=== PATIENT | male | born 1975 | race Caucasian/White ===

== ENCOUNTER 2025-04-11 10:19 | Inpatient (IN) | payer SELFPAY ==
[~2025-04-11] VITALS: Ht 175.3 cm; Wt 88.5 kg
[2025-04-11 10:22] VITALS: O2SAT 99
[2025-04-11] MEDS: LACTATED RINGERS 1,000 ML IV SCH (10:52)
[2025-04-11] MEDS: ONDANSETRON HCL 4MG/2ML INJ IV ONE (10:52)
[2025-04-11] MEDS: KETOROLAC 15MG/ML VIAL IV ONE (10:53)
[2025-04-11 11:08] LABS: BASOPHILS % 0.7 % (0.0-2.0); EOSINOPHILS % 0.4 % (0.0-5.0); HEMATOCRIT. 46.2 % (42.0-52.0); HEMOGLOBIN. 16.1 g/dL (14.0-18.0); LYMPHOCYTES % 14.3 % (20.0-50.0); MEAN PLATELET VOLUME 11.1 fl (7.4-10.4); MONOCYTES % 7.3 % (2.0-8.0); NEUTROPHILS % 77.3 % (40.0-76.0); PLATELET 152 x1000/uL (130-400); RED BLOOD CELL COUNT 5.05 mill/uL (4.7-6.1); RED CELL DISTRIBUTION WIDTH 13.9 % (11.6-14.6)
[2025-04-11 11:22] LABS: CREATININE 1.2 mg/dL (0.6-1.3)
[2025-04-11 11:23] LABS: UREA NITROGEN BLOOD 13 mg/dL (9-23)
[2025-04-11 11:24] LABS: ASPARTATE AMINOTRANSFERASE 28 IU/L (<34)
[2025-04-11 11:25] LABS: BILIRUBIN DIRECT 0.4 mg/dL (<=3.0); BILIRUBIN TOTAL 1.2 mg/dL (0.1-1.0); PROTEIN TOTAL 7.0 g/dL (6.0-8.3)
[2025-04-11] MEDS ORDERED: HYDROMORPHONE HCL/PF 2MG/ML INJ IV ONE (11:30)
[2025-04-11] MEDS: HYDROMORPHONE HCL/PF 1MG/ML INJ IV NR (12:04)
[2025-04-11 12:12] LABS: CLARITY URINE CLEAR (CLEAR); COLOR URINE YELLOW (YELLOW); GLUCOSE URINE NEGATIVE (NEGATIVE); KETONES URINE 4+ (NEGATIVE); LEUKOCYTE ESTERASE URINE NEGATIVE (NEGATIVE); NITRITE URINE NEGATIVE (NEGATIVE); OCCULT BLOOD URINE 2+ (NEGATIVE); PH URINE 5.5 (4.5-8.0); PROTEIN URINE NEGATIVE (NEGATIVE); SPECIFIC GRAVITY URINE 1.031 (1.005-1.030); UROBILINOGEN URINE 0.2 E.U./dL (0.2-1.0)
[2025-04-11 12:21] LABS: BACTERIA URINE NONE SEEN; SQUAMOUS EPITHELIAL CELL URINE RARE /lpf (RARE/1+); WBC URINE 0-2 /hpf (0-2); YEAST URINE NONE SEEN
[2025-04-11] MEDS ORDERED: CLONIDINE 0.1MG TABLET PO PRN (12:45)
[2025-04-11] MEDS ORDERED: MAGNESIUM/ALUMINUM HYDROXIDE/SIMETHICONE 30ML UDC PO PRN (12:45)
[2025-04-11] MEDS ORDERED: ACETAMINOPHEN 325MG TABLET PO PRN ×2 (12:45)
[2025-04-11] MEDS ORDERED: ONDANSETRON HCL 4MG/2ML INJ IV PRN (12:45)
[2025-04-11] MEDS ORDERED: DIPHENHYDRAMINE 50MG/ML VIAL IV PRN (12:45)
[2025-04-11] MEDS ORDERED: KETOROLAC 30MG/ML VIAL IV PRN (12:45)
[2025-04-11] MEDS ORDERED: NALOXONE HCL 0.4MG/ML VIAL IV PRN (13:00)
[2025-04-11] MEDS: SODIUM CHLORIDE 0.9% 1,000 ML IV SCH (13:08)
[2025-04-11 13:45] VITALS: BP 109/76; PULSE 53; RESP 20; TEMP 36.3; O2SAT 100
[2025-04-11] MEDS: TAMSULOSIN HCL 0.4MG SR CAPSULE PO SCH (13:50)
[2025-04-11] MEDS: KCL 20MEQ/100ML PREMIX 100 ML IV NR (13:51)
[2025-04-11] MEDS: HYDROMORPHONE HCL/PF 1MG/ML INJ IV PRN (14:37)
[2025-04-11 14:45] VITALS: BP 109/76; PULSE 53; RESP 20; TEMP 36.3068
[2025-04-11 16:00] VITALS: BP 121/70; PULSE 50; RESP 18; TEMP 36.4; O2SAT 99
[2025-04-11] MEDS ORDERED: CLON1TAB23 PO (16:06)
[2025-04-11 20:00] VITALS: BP 135/78; PULSE 62; RESP 20; TEMP 36.9; O2SAT 99
[2025-04-11] MEDS: KETOROLAC 30MG/ML VIAL IV SCH (20:27)
[2025-04-11] MEDS ORDERED: ZOLPIDEM TARTRATE 5MG TABLET PO PRN (21:00)
[2025-04-11] MEDS: DIAZEPAM 5 MG/ML 2ML SYR IV SCH (21:29)
[2025-04-12] VITALS: BP 109/65; PULSE 68; RESP 18; TEMP 36.9; O2SAT 96
[2025-04-12 04:00] VITALS: BP 102/60; PULSE 65; RESP 19; TEMP 36.7; O2SAT 95
[2025-04-12 07:51] LABS: CREATININE 1.4 mg/dL (0.6-1.3); UREA NITROGEN BLOOD 10.0 mg/dL (9-23)
[2025-04-12 08:00] VITALS: BP 113/69; PULSE 67; RESP 17; TEMP 36.6; O2SAT 100
[2025-04-12 08:10] LABS: BASOPHILS % 0.3 % (0.0-2.0); EOSINOPHILS % 0.9 % (0.0-5.0); HEMATOCRIT. 41.1 % (42.0-52.0); HEMOGLOBIN. 14.1 g/dL (14.0-18.0); LYMPHOCYTES % 11.6 % (20.0-50.0); MEAN PLATELET VOLUME 11.0 fl (7.4-10.4); MONOCYTES % 10.1 % (2.0-8.0); NEUTROPHILS % 77.1 % (40.0-76.0); PLATELET 116 x1000/uL (130-400); RED BLOOD CELL COUNT 4.44 mill/uL (4.7-6.1); RED CELL DISTRIBUTION WIDTH 13.9 % (11.6-14.6)
[2025-04-12 08:42] VITALS: BP 113/69; PULSE 67; RESP 17; TEMP 97.7
[2025-04-12] MEDS ORDERED: CLONAZEPAM 1MG TABLET PO SCH (21:00)
== END 2025-04-12 10:18 | disposition home or self-care (01) | DRG 465 ==
LOC: ER 10:41 → 8EST 12:20 → EDBEDREQTM 12:22 → EDBEDREQ 12:22
PROVIDERS: ADMIT Internal Medicine; ATTEND Internal Medicine
DX: N13.2 Hydronephrosis with renal and ureteral calculous obstruction (principal); E87.6 Hypokalemia; F41.1 Generalized anxiety disorder; G47.00 Insomnia, unspecified; N23 Unspecified renal colic; Z90.49 Acquired absence of other specified parts of digestive tract
CPT/HCPCS: 36415; 74176; 76870; 80048; 80076; 81003; 83735; 85025; 93976; 99285; J1171; J1885; J2405; J3480